=== PATIENT | male | born 1990 | race Caucasian/White ===

== ENCOUNTER 2021-11-03 13:09 | Emergency (ER) | payer MEDICAID, SELFPAY ==
[2021-11-03 13:10] VITALS: BP 171/109; PULSE 119; RESP 18; TEMP 36.8; O2SAT 95; BMI 26.9
--- NOTE | 2021-11-03 13:50 | EX.ED.GUMALE ---
HPI History of Present Illness Chief Complaint: Male Pain/Injury Narrative Narrative: Patient presents with a right scrotal infection for the past 3 days, it started as a small cyst and progressively got bigger and bigger to an abscess. No fevers chills cough or congestion. He has no abdominal pain. He is not a diabetic. PFSH PFSH Medical History no medical history Home Medications cephalexin 500 mg capsule 500 mg PO Q6 #40 caps 11/03/21 [Rx Last Taken Unknown] hydrocodone-acetaminophen 5-325mg 5mg-325mg 1 tab PO Q6H PRN pain 3 days #10 tabs 11/03/21 [Rx Last Taken Unknown] sulfamethoxazole 800 mg-trimethoprim 160 mg tablet (Bactrim DS) 1 tab PO BID #20 tabs 11/03/21 [Rx Last Taken Unknown] Allergy/AdvReac Type Severity Reaction Status Date / Time No Known Allergies Allergy Verified 11/03/21 13:11 Surgical History no surgical history Social History Smoking Status: Never smoker ROS ROS ED ROS Narrative Past medical history: Reviewed, unremarkable Medications: Reviewed Social history: He did have 2 drinks today, 2 twisted ice teas. Review of systems: All systems negative except as indicated General: No fever Neck: No neck pain Cardiovascular: No chest pain Respiratory: No shortness of breath or cough Gastrointestinal: No abdominal pain, nausea vomiting or diarrhea Genitourinary: As in HPI. Otherwise no dysuria or penile discharge Musculoskeletal: Denies myalgias no difficulty with ambulation Skin: No rash Neurological: No memory loss, confusion or any focal weakness Psych: No recent behavioral changes Hematologic: No easy bleeding or easy bruising EXAM Physical Exam Narrative Exam Narrative: Physical exam General: Well nourished, Well developed, No Acute Distress Head: Normocephalic, Atraumatic ENT: Moist mucous membranes Neck: Supple, Nontender, No lymphadenopathy Cardiovascular: Regular rate, Regular rhythm Respiratory: No distress, CTA bilaterally Abdomen: Soft, Nontender, Nondistended : There is a right scrotal abscess about 2.5 x 3 cm. There is no significant scrotal cellulitis. There is no traction there is no crepitus. Back: Nontender, Normal Inspection. Negative for: CVA tenderness Extremities: Nontender, No edema Skin: Normal color, No rash Neurological: Alert, Normal Strength, Normal Sensation Psychological: Normal affect Const Vital Signs: 11/03/21 13:10 Temperature 98.3 F Temperature Source Temporal Pulse Rate 119 H Respiratory Rate 18 Blood Pressure 171/109 H Blood Pressure Mean 129 Pulse Ox 95 Oxygen Delivery Method Room Air MDM MDM MDM Narrative Medical decision making narrative: Incision and drainage was done by me, there is no significant cellulitis and he appears well. I will discharge him with antibiotics for home. Procedures Other Procedures Procedure(s): Incision and drainage of right scrotal abscess Verbal consent obtained I used 1% lidocaine without epinephrine, about 6 mL total I used an 11 blade and then I ellipsed it with scissors, I used hemostats to break all the loculations. Copious amounts of pus was expectorated. I then irrigated with saline. Patient tolerated procedure relatively well. Discharge Plan Triage Chief Complaint: Male Pain/Injury Other Complaint: Abscess ED Provider: Addison Goetz Dx/Rx/DC Orders Clinical Impression: Abscess of scrotal wall, Acute pain in scrotum Instructions: ED Abscess Incision And Drainage Prescriptions: New cephalexin 500 mg capsule 500 mg PO Q6 Qty: 40 0RF sulfamethoxazole-trimethoprim [Bactrim DS] 800-160 mg tablet 1 tab PO BID Qty: 20 0RF hydrocodone-acetaminophen 5-325 mg tablet 1 tab PO Q6H PRN (Reason: pain) 3 Days Qty: 10 0RF Referrals: Charli Buckley MD [STAFF PHYSICIAN] - 2 Days for wound check NOT,DEFINED [NON-STAFF] - Disposition Disposition: Home, Self Care
[2021-11-03] MEDS: Cephalexin 250 MG Capsule 500 MG PO (14:02)
[2021-11-03] MEDS: Smz/Tmp Ds Tablet 1 TABLET PO (14:02)
[2021-11-03 15:09] VITALS: BP 136/64; PULSE 78; RESP 14; O2SAT 97
[2021-11-03] MEDS: Lidocaine 1% (20 ml mdv) 20 ML Vial INFILT (15:14)
[2021-11-03 15:26] VITALS: BP 134/78; PULSE 66; RESP 14; TEMP 37.2; O2SAT 98
== END 2021-11-03 15:26 | disposition home or self-care (01) ==
PROVIDERS: Emergency Provider Emergency Medicine; Visit Provider Emergency Medicine
DX: N49.2 Inflammatory disorders of scrotum (principal)
CPT/HCPCS: 54700; 99284